=== PATIENT | male | born 1990 | race Caucasian/White ===

== ENCOUNTER 2024-04-27 11:30 | Emergency (ER) | payer OTHER ==
[2024-04-27 11:39] VITALS: RESP 20; TEMP 98.3
--- NOTE | 2024-04-27 12:04 | XR ---
EXAMINATION TYPE: XR finger LT DATE OF EXAM: 04/27/2024 COMPARISON: NONE CLINICAL INDICATION: Male, 34 years old with history of fourth digit injury; pain TECHNIQUE: 3 views fourth finger left hand. FINDINGS: No acute displaced fracture fourth finger of the left hand. Joint spaces are preserved. Ove rlying soft tissues are unremarkable. IMPRESSION: As above [facility] Wendy Borden, , 04/27/2024 12:02 PM
--- NOTE | 2024-04-27 12:17 | ED ---
General Adult HPI - General Chief complaint: Extremity Injury, Upper Stated complaint: Left ring finger pain Time Seen by Provider: 04/27/24 11:42 Source: patient, RN notes reviewed Mode of arrival: ambulatory Limitations: no limitations - History of Present Illness Initial comments: This is a 34-year-old male no significant medical history presented to emergency room for complaint of left fourth digit injury that occurred approximately 1 hour prior to arrival. Patient is that he accidentally slammed his digit in a car door. Patient has pain with range of motion of the digit. Denies other injuries at this time. No other acute complaints. - Related Data Allergies Allergy/AdvReac Type Severity Reaction Status Date / Time peanut Allergy Rash/Hives Verified 04/27/24 11:40 Penicillins Allergy Unknown Verified 04/27/24 11:39 Childhood Sulfa (Sulfonamide Allergy Anaphylaxis Verified 04/27/24 11:39 Antibiotics) Review of Systems ROS Statement: Those systems with pertinent positive or pertinent negative responses have been documented in the HPI. ROS Other: All systems not noted in ROS Statement are negative. Past Medical History Past Medical History: No Reported History History of Any Multi-Drug Resistant Organisms: None Reported Past Surgical History: Adenoidectomy, Tonsillectomy Past Psychological History: No Psychological Hx Reported Smoking Status: Never smoker Past Alcohol Use History: Occasional Past Drug Use History: None Reported General Exam Limitations: no limitations General appearance: alert, in no apparent distress Respiratory exam: Present: normal lung sounds bilaterally. Absent: respiratory distress, wheezes, rales, rhonchi, stridor Cardiovascular Exam: Present: regular rate, normal rhythm, normal heart sounds. Absent: systolic murmur, diastolic murmur, rubs, gallop, clicks GI/Abdominal exam: Present: soft, normal bowel sounds. Absent: distended, tenderness, guarding, rebound, rigid Left Hand Wrist exam: Present: full ROM, tenderness (4th digit with ROM and palpation). Absent: swelling, ecchymosis, deformity, crepitus, dislocation, subungual hematoma Neuro motor exam: Present: wrist extension intact, thumb opposition intact Vascular: Present: normal capillary refill, radial pulse (2+). Absent: vascular compromise Back exam: Present: normal inspection Course Vital Signs 04/27/24 04/27/24 11:34 12:57 Temperature 98.3 F Pulse Rate 61 66 Respiratory 20 20 Rate Blood Pressure 133/69 124/73 O2 Sat by Pulse 98 99 Oximetry Medical Decision Making - Medical Decision Making Was pt. sent in by a medical professional or institution (, [facility], [employer] INSPECTOR, urgent care, hospital, or group home...) When possible be specific @ -No Did you speak to anyone other than the patient for history (EMS, parent, family, police, friend...)? What history was obtained from this source @ -No Did you review nursing and triage notes (agree or disagree)? Why? @ -I reviewed and agree with nursing and triage notes Were old charts reviewed (outside hosp., previous admission, EMS record, old EKG, old radiological studies, urgent care reports/EKG's, group home records)? Report findings @ -No old charts were reviewed Differential Diagnosis (chest pain, altered mental status, abdominal pain women, abdominal pain men, vaginal bleeding, weakness, fever, dyspnea, syncope, headache, dizziness, GI bleed, back pain, seizure, CVA, palpatations, mental health, musculoskeletal)? @ -Differential Musculoskeletal Muscular strain, contusion, ligament sprain, fracture, arthritis, septic arthritis, bursitis, cellulitis, muscle spasm, nerve compression, DVT, arterial occlusion, herpes zoster, electrolyte abnormality, tumor.... This is not meant to be in all inclusive list EKG interpreted by me (3pts min.). @ -none X-rays interpreted by me (1pt min.). @ -X-ray of the left finger reveals no acute displaced fracture and unremarkable soft tissues CT interpreted by me (1pt min.). @ -None done U/S interpreted by me (1pt. min.). @ -None done What testing was considered but not performed or refused? (CT, X-rays, U/S, labs)? Why? @ -None What meds were considered but not given or refused? Why? @ -None Did you discuss the management of the patient with other professionals (professionals i.e. CAROLE Irizarry, YARN INSPECTOR, lab, RT, psych nurse, criminal justice social worker, nursing professor, teacher, security officers and guards, case management manager)? Give summary @ -No Was smoking cessation discussed for >3mins.? @ -No Was critical care preformed (if so, how long)? @ -No Were there social determinants of health that impacted care today? How? (Homelessness, low income, unemployed, alcoholism, drug addiction, transportation, low edu. Level, literacy, decrease access to med. care, usp, rehab)? @ -No Was there de-escalation of care discussed even if they declined (Discuss DNR or withdrawal of care, Hospice)? DNR status @ -No What co-morbidities impacted this encounter? (DM, HTN, Smoking, COPD, CAD, Cancer, CVA, ARF, Chemo, Hep., AIDS, mental health diagnosis, sleep apnea, morbid obesity)? @ -None Was patient admitted / discharged? Hospital course, mention meds given and route, prescriptions, significant lab abnormalities, going to OR and other pertinent info. @ -Discharge. 34 female presenting with left fourth digit pain. Patient noted to have pain with range of motion of the fourth digit and on palpation however there is no overlying ecchymosis or deformity. Patient is provided with Tylenol 3 for pain relief and ice pack. X-ray is unremarkable. He is provided with an aluminum form splint and instructed to continue supportive treatment at home such as ice, rest, use Tylenol Motrin. Case discussed with Dr. Mackay Undiagnosed new problem with uncertain prognosis? @ -No Drug Therapy requiring intensive monitoring for toxicity (Heparin, Nitro, Insulin, Cardizem)? @ -No Were any procedures done? @ -No Diagnosis/symptom? @ -finger sprain Acute, or Chronic, or Acute on Chronic? @ -acute Uncomplicated (without systemic symptoms) or Complicated (systemic symptoms)? @ -uncomplicated Side effects of treatment? @ -No Exacerbation, Progression, or Severe Exacerbation? @ -No Poses a threat to life or bodily function? How? (Chest pain, USA, SC, pneumonia, PE, COPD, DKA, ARF, appy, cholecystitis, CVA, Diverticulitis, Homicidal, Suicidal, threat to staff... and all critical care pts) @ -No Disposition Clinical Impression: Finger sprain Disposition: HOME SELF-CARE Condition: Good Instructions (If sedation given, give patient instructions): Finger Sprain (ED) Additional Instructions: Please return to the Emergency Department if symptoms worsen or any other concerns. Is patient prescribed a controlled substance at d/c from ED?: No Referrals: Lazarus Johnston DO [Primary Care Provider] - 1-2 days Time of Disposition: 12:36
[2024-04-27] MEDS: ACETAMINOPHEN TAB 500 MG TAB PO STA (12:44)
[2024-04-27] MEDS: Acetaminophen-Codeine 300-30mg TAB PO STA (12:55)
[2024-04-27 12:58] VITALS: BP 124/73; PULSE 66
== END 2024-04-27 12:58 | disposition home or self-care (01) ==
LOC: EC 11:30
DX: S63.615A Unspecified sprain of left ring finger, initial encounter (principal); Z88.0 Allergy status to penicillin; Z88.2 Allergy status to sulfonamides; Z91.010 Allergy to peanuts; W23.0XXA Caught, crushed, jammed, or pinched between moving objects, initial encounter
CPT/HCPCS: 99283